=== PATIENT | female | born 1960 | race Asian ===

== ENCOUNTER → 2018-02-23 | Outpatient (CLI) | payer MEDICAID ==
[~2018-02-23] MED LIST: ACLI400A2 INH; ALBU18HF INH; ALLO100T30 PO; BUDE10.22 INH; BUPR75TA6 PO; CIPR250T27 PO; CITA40TA5 PO; CLON-364 PO; HYDR-3240 PO; INDO50CA PO; LEVO88TA4 PO; LISI-170 PO; NAPR-758 PO; RANI150T4 PO; TRAM50TA2 PO; ZOLP5TAB6 PO
== END | disposition home or self-care (01) ==
LOC: CFH 13:23
PROVIDERS: ATTEND Registered Nurse
DX: I10 Essential (primary) hypertension (principal); E78.5 Hyperlipidemia, unspecified; J45.40 Moderate persistent asthma, uncomplicated; J96.11 Chronic respiratory failure with hypoxia
CPT/HCPCS: 93306